=== PATIENT | female | born 1995 | race Caucasian/White ===

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

== ENCOUNTER 2017-07-31 20:33 | Emergency (ER) | payer OTHER, MEDICAID ==
[~2017-07-31] VITALS: Ht 160 cm; Wt 86.2 kg
[2017-07-31 22:04] LABS: BASOPHIL % 0.4 % (0-2); PLATELET COUNT 332 x10^3mcL (130-400)
[2017-07-31 22:08] LABS: CALCIUM 8.5 mg/dL (8.5-10.1); CARBON DIOXIDE 25.6 mmol/L (21-32); CHLORIDE SERUM 105 mmol/L (98-107); CREATININE SERUM 0.7 mg/dL (0.6-1.0); GFR1 > 60 mL/min; GLUCOSE SERUM 102 mg/dL (74-106); POTASSIUM SERUM 3.4 mmol/L (3.5-5.1); SODIUM SERUM 144 mmol/L (136-145)
[2017-07-31 22:12] LABS: ALBUMIN 3.7 g/dL (3.4-5.0); ALKALINE PHOSPHATASE 107 U/L (46-116); ALT/SGPT 24 U/L (14-59); AST/SGOT 15 U/L (15-37); BILIRUBIN TOTAL 0.39 mg/dL (0.20-1.00); LIPASE 114 IU/L (73-393); TOTAL PROTEIN, SERUM 7.4 g/dL (6.4-8.2)
[2017-07-31 22:21] LABS: AMPHETAMINE QUAL UR NONE DETECTED (NEG <=1000)
[2017-07-31 23:39] VITALS: BP 125/86
== END 2017-07-31 23:39 | disposition home or self-care (01) ==
LOC: ED 20:33
PROVIDERS: Emergency Medicine
DX: K21.9 Gastro-esophageal reflux disease without esophagitis (principal); R06.02 Shortness of breath
CPT/HCPCS: 83880; 85378; J7030; Q0092